=== PATIENT | male | born 1950 | race American Indian/Alaskan Native ===

== ENCOUNTER 2018-10-16 16:16 | Outpatient (CLI) | payer OTHER ==
[~2018-10-16] VITALS: Ht 152.4 cm; Wt 95.3 kg
== END 2018-10-16 16:35 | disposition home or self-care (01) ==
LOC: OFIC 805 16:16
DX: J31.0 Chronic rhinitis (principal); H61.21 Impacted cerumen, right ear

== ENCOUNTER 2020-02-11 14:01 | Outpatient (CLI) | payer OTHER | END 2020-02-11 14:08 | disposition home or self-care (01) | LOC: RAD 14:01 | DX: R05 Cough (principal) ==

== ENCOUNTER 2020-10-13 08:00 | Outpatient (CLI) | payer OTHER | END 2020-10-13 15:00 | disposition home or self-care (01) | LOC: PPH VACUNA 08:00 | PROVIDERS: ATTEND Emergency Medicine Pediatric Emergency Medicine | DX: Z23 Encounter for immunization (principal) ==

== ENCOUNTER 2020-12-05 15:26 | Outpatient (CLI) | payer OTHER | END 2020-12-05 16:15 | disposition home or self-care (01) | LOC: RAD 15:26 | PROVIDERS: ATTEND Obstetrics & Gynecology | DX: R05 Cough (principal); R07.89 Other chest pain ==

== ENCOUNTER → 2021-04-12 11:42 | Outpatient (CLI) | payer OTHER | END | disposition home or self-care (01) | LOC: LAB 11:42 | PROVIDERS: ATTEND Obstetrics & Gynecology | DX: U07.1 COVID-19 (principal) ==

== ENCOUNTER 2021-04-19 10:28 | Outpatient (CLI) | payer OTHER | END 2021-04-19 10:35 | disposition home or self-care (01) | LOC: RAD 10:28 | PROVIDERS: ATTEND Obstetrics & Gynecology | DX: M25.552 Pain in left hip (principal); M25.551 Pain in right hip ==

== ENCOUNTER 2021-07-05 08:00 | Outpatient (CLI) | payer OTHER | END 2021-07-05 08:30 | disposition home or self-care (01) | LOC: PPH VACUNA 08:00 | PROVIDERS: ATTEND Emergency Medicine Pediatric Emergency Medicine | DX: Z23 Encounter for immunization (principal) ==

== ENCOUNTER 2021-08-05 11:08 | Outpatient (CLI) | payer OTHER | END 2021-08-05 11:11 | disposition home or self-care (01) | LOC: RAD 11:08 | PROVIDERS: ATTEND Pediatrics | DX: M25.512 Pain in left shoulder (principal); I10 Essential (primary) hypertension ==

== ENCOUNTER 2021-08-09 07:54 | Inpatient (IN) | payer OTHER ==
[~2021-08-09] VITALS: Ht 172.7 cm; Wt 90.7 kg
--- NOTE | 2021-08-09 08:03 | NUR ---
SE RECIBE PACIENTE ALERTA Y ORIENTADO X3 PACIENTE REFIERE HABERSE CAIDO EL [facility]ERNES EN [place] SE BANABA. PACIENTE REFIERE [facility] Y REFIERE QUE TIENE 4 [address]OTAS Y LE REALIZARON OTYA PLACA DE PECHO. PACIENTE CON HEMATOMA VISIBLE EN AREA AFECTADA. SE MONITOREAN S/V Y SE UBICA EN CAMA 09.
[2021-08-09] MEDS ORDERED: CALAN SR120 MG (08:06)
[2021-08-09] MEDS ORDERED: CRESTOR20 MG PO (08:07)
[2021-08-09] MEDS ORDERED: HYDROCHLOROTH12.5 MG (08:07)
[2021-08-09] MEDS ORDERED: ONE-DAILY MULT1 EAC1 PO (08:08)
[2021-08-09] MEDS ORDERED: SENOKOT8.6 M1 (08:09)
[2021-08-09] MEDS ORDERED: POLY119PG (08:09)
[2021-08-09] MEDS ORDERED: DULCOLAX5 MG (08:09)
--- NOTE | 2021-08-09 09:07 | NUR ---
PACIENTE EVALUADO POR EL A QUIEN ORDENA TRATAMIENTO MEDICO. SE ORIENTA AL PACIENTE SOBRE EL MISMO RADHA REFIERE ENTENDER. SE REALIZAN MUESTRAS DE LABORATORIO FLORIN ORDEN MEDICA. SE ESPERA POR SONOGRAMA ABDOMINAL Y DE EXTREMIDAD.
--- NOTE | 2021-08-09 09:31 | NUR ---
SE NOTIFICA A LAS 9:32AM A TERAPIA RESPIRATORIA SOBRE LOS ABG DEL PACIENTE TERAPIA RESPONDE E INDICA QUE VA A BAJAR.
== END 2021-08-16 17:38 | disposition designated cancer center or children's hospital (05) | DRG 200 ==
LOC: ER 07:54 → SEC-K 15:15 → SURH 15:15 → SURG 08-10 15:46
PROVIDERS: ADMIT Surgery; ATTEND Surgery
PROC: 0W9B30Z Drainage of Left Pleural Cavity with Drainage Device, Percutaneous Approach (ICD-10-PCS; principal; 2021-08-10)
PROC: 3E0F7SF Introduction of Other Gas into Respiratory Tract, Via Natural or Artificial Opening (ICD-10-PCS; 2021-08-10)
PROC: 4A12X4Z Monitoring of Cardiac Electrical Activity, External Approach (ICD-10-PCS; 2021-08-10)
PROC: 02HV33Z Insertion of Infusion Device into Superior Vena Cava, Percutaneous Approach (ICD-10-PCS; 2021-08-11)
PROC: 30233N1 Transfusion of Nonautologous Red Blood Cells into Peripheral Vein, Percutaneous Approach (ICD-10-PCS; 2021-08-11)
PROC: 4A033R1 Measurement of Arterial Saturation, Peripheral, Percutaneous Approach (ICD-10-PCS; 2021-08-15)
PROC: 0WWB30Z Revision of Drainage Device in Left Pleural Cavity, Percutaneous Approach (ICD-10-PCS; 2021-08-15)
DX: S27.1XXA Traumatic hemothorax, initial encounter (principal); S22.42XA Multiple fractures of ribs, left side, initial encounter for closed fracture; J98.11 Atelectasis; J90 Pleural effusion, not elsewhere classified; J45.21 Mild intermittent asthma with (acute) exacerbation; W18.39XA Other fall on same level, initial encounter; Y84.8 Other medical procedures as the cause of abnormal reaction of the patient, or of later complication, without mention of misadventure at the time of the procedure; Y92.091 Bathroom in other non-institutional residence as the place of occurrence of the external cause; Z20.822 Contact with and (suspected) exposure to COVID-19; D64.9 Anemia, unspecified

== ENCOUNTER 2021-09-05 07:05 | Outpatient (CLI) | payer OTHER ==
[~2021-09-05 07:05] MED LIST: CALAN SR120 MG; CRESTOR20 MG PO; DULCOLAX5 MG; HYDROCHLOROTH12.5 MG; ONE-DAILY MULT1 EAC1 PO; POLY119PG; SENOKOT8.6 M1
== END 2021-09-05 07:45 | disposition home or self-care (01) ==
LOC: RAD 07:05
PROVIDERS: ATTEND Obstetrics & Gynecology
DX: R07.89 Other chest pain (principal); R05.8 Other specified cough

== ENCOUNTER 2021-09-29 11:01 | Outpatient (CLI) | payer OTHER | END 2021-09-29 16:49 | disposition home or self-care (01) | LOC: LAB 11:01 | PROVIDERS: ATTEND Obstetrics & Gynecology | DX: Z20.822 Contact with and (suspected) exposure to COVID-19 (principal) ==

== ENCOUNTER 2021-11-08 08:48 | Outpatient (CLI) | payer OTHER | END 2021-11-08 14:15 | disposition home or self-care (01) | LOC: TOM 08:48 | PROVIDERS: ATTEND Internal Medicine Pulmonary Disease | DX: R91.8 Other nonspecific abnormal finding of lung field (principal) ==

== ENCOUNTER 2022-01-05 08:00 | Outpatient (CLI) | payer OTHER | END 2022-01-05 08:30 | disposition home or self-care (01) | LOC: PPH VACUNA 08:00 | PROVIDERS: ATTEND Emergency Medicine Pediatric Emergency Medicine | DX: Z23 Encounter for immunization (principal) ==

== ENCOUNTER 2022-07-10 08:08 | Outpatient (CLI) | payer OTHER | END 2022-07-10 08:18 | disposition home or self-care (01) | LOC: PPH VACUNA 08:08 | PROVIDERS: ATTEND Emergency Medicine Pediatric Emergency Medicine | DX: Z23 Encounter for immunization (principal) ==

== ENCOUNTER 2023-02-25 16:12 | Outpatient (CLI) | payer OTHER | END 2023-02-25 16:23 | disposition home or self-care (01) | LOC: RAD 16:12 | PROVIDERS: ATTEND Obstetrics & Gynecology | DX: R05.8 Other specified cough (principal) ==

== ENCOUNTER 2023-05-22 12:48 | Outpatient (CLI) | payer OTHER | END 2023-05-22 12:55 | disposition home or self-care (01) | LOC: RAD 12:48 | PROVIDERS: ATTEND Radiology Diagnostic Radiology | DX: M17.0 Bilateral primary osteoarthritis of knee (principal) ==

== ENCOUNTER 2023-07-24 10:30 | Outpatient (CLI) | payer OTHER ==
[2023-07-24 11:41] LABS: FECAL LEUKOCYTES POSITIVE (NEGATIVE)
[2023-07-24 11:43] LABS: ob POSITIVE (NEGATIVE)
== END 2023-07-24 10:31 | disposition home or self-care (01) ==
LOC: LAB 10:30
PROVIDERS: ATTEND Obstetrics & Gynecology
DX: K57.90 Diverticulosis of intestine, part unspecified, without perforation or abscess without bleeding (principal)

== ENCOUNTER 2024-10-26 11:08 | Outpatient (CLI) | payer OTHER | END 2024-10-26 11:29 | disposition home or self-care (01) | LOC: NUCLEAR 11:08 | PROVIDERS: ATTEND Pediatrics | DX: I10 Essential (primary) hypertension (principal) ==